=== PATIENT | male | born 1955 | race African-American/Black ===

== ENCOUNTER → 2019-06-22 | Day surgery (SDC) | payer MEDICARE ==
[2019-06-17 11:41] LABS: EOSINOPHILS # (AUTO) 0.1 (0.0-0.4); EOSINOPHILS % 1.7 % (0.0-6.0); HEMATOCRIT 42.1 % (38.2-49.6); HEMOGLOBIN 14.1 g/dL (14.0-18.0); LYMPHOCYTES # (AUTO) 1.3 (1.0-3.2); LYMPHOCYTES % 32.3 % (18.0-39.1); MEAN CORPUSCULAR HEMOGLOBIN 31.3 pg (28-32); MEAN CORPUSCULAR HGB CONC 33.5 g/dL (31-35); MEAN CORPUSCULAR VOLUME 93.6 fL (81-99); MONOCYTES # (AUTO) 0.5 (0.2-0.8); MONOCYTES % 11.6 % (4.4-11.3); NEUTROPHILS # (AUTO) 2.2 (2.1-6.9); NEUTROPHILS % 53.2 % (38.7-80.0); PLATELET COUNT 257 x10e3/uL (140-360); RED CELL DISTRIBUTION WIDTH 14.7 % (11.7-14.4)
[2019-06-17 12:08] LABS: ALANINE AMINOTRANSFERASE 10 IU/L (0-55); ALBUMIN/GLOBULIN RATIO 1.1 (0.8-2.0); ALKALINE PHOSPHATASE 143 IU/L (40-150); BLOOD UREA NITROGEN 21 mg/dL (7-26); BUN/CREATININE RATIO 17 (6-25); CALCIUM 10.3 mg/dL (8.4-10.2); CARBON DIOXIDE 30 mmol/L (22-29); CHLORIDE 101 mmol/L (98-107); CREATININE, SERUM 1.27 mg/dL (0.72-1.25); EST GLOMERULAR FILTRATION RATE > 60 ML/MIN (60-); GLUCOSE 90 mg/dL (74-118); SODIUM 141 mmol/L (136-145)
[~2019-06-22] VITALS: Ht 180.3 cm; Wt 81.6 kg
[~2019-06-22] MED LIST: ALPRAZOLAM 0.5 MG TAB ONE; DIPHENHYDRAMINE HCL 25 MG CAP ONE; FENTANYL CITRATE/PF 100MCG/2 ML INJ ONE; FUROSEMIDE40 MG PO; HEPARIN SOD (PORCINE) 1000 UNIT/ML 30ML ONE; IOPAMIDOL 370 MG/ML 200 ML INFUS..BTL INJ ONE; LIDOCAINE HCL 2% LOCAL 20 ML VIAL ONE; LOSARTAN POTASS25 MG PO; LYRICA75 MG PO; METOPROLOL SUCC25 MG PO; MIDAZOLAM HCL 2 MG/2 ML VIAL ONE; NITROGLYCERIN/D5W 200 MCG/ML 250 ML ONE; SIMVASTATIN20 MG PO; SODIUM CHLORIDE 0.9% 1000ML 0 ML ONE; VERAPAMIL HCL 2.5 MG/ML 2 ML VIAL ONE
[2019-06-22 10:31] VITALS: BP 133/88
[2019-06-22 11:20] VITALS: BP 127/84
[2019-06-22 11:40] VITALS: BP 127/86
[2019-06-22 12:05] VITALS: BP 130/90
--- NOTE | 2019-06-22 13:47 | NUR ---
Pt meets DC criteria. Patient assessed for s/s of complication and presence of hematoma. Right radial warm, dry, no discolor, and pulses present. IV removed from left hand. Distal tip intact. VS WNL. Pt denies pain, sob, or need at this time. Family at bedside left to bring vehicle to the front of the hospital. Review of discharge paperwork and follow up instructions. verbalized understanding. Pt to wheelchair and transported to front of hospital. Transferred to private vehicle under own strength w/o incident with DC paperwork in hand.
--- NOTE | 2019-06-23 09:20 | Operative Report ---
DATE OF PROCEDURE: 06/22/2019 SURGEON: Abdirizak Cunningham MD INDICATIONS: Coronary artery disease, abnormal stress test. PROCEDURES PERFORMED: 1. Left heart catheterization, selective coronary angiography. 2. Deployment of right wrist TR band. COMPLICATIONS: None. RECOMMENDATIONS: Medical therapy. DESCRIPTION OF PROCEDURE: Access obtained in the right radial artery. A 5-[place] sheath was placed. Coronary angiography demonstrated mild to moderate coronary artery disease diffusely in all coronary vessels, 30% to 50% luminal stenosis, no critical occlusions or stenosis noted. LV end-diastolic pressure of 12. LV ejection fraction of 60%. No gradient across the aortic valve on pullback. Right wrist TR band applied. The patient discharged home same day. Abdirizak Cunningham MD [facility] /[id number]
== END | disposition home or self-care (01) ==
LOC: CATH LAB 09:16
PROVIDERS: ATTEND Internal Medicine Interventional Cardiology
DX: I25.118 Atherosclerotic heart disease of native coronary artery with other forms of angina pectoris (principal); I50.20 Unspecified systolic (congestive) heart failure; R94.39 Abnormal result of other cardiovascular function study; E78.5 Hyperlipidemia, unspecified; Z01.812 Encounter for preprocedural laboratory examination; Z89.612 Acquired absence of left leg above knee; Z82.49 Family history of ischemic heart disease and other diseases of the circulatory system
CPT/HCPCS: 36415; 80053; 85025; 93458; C1769; C1887; J1644; J2001; J2250; J3010; Q9967; 99152; J7030